=== PATIENT | female | born 1935 | race Caucasian/White ===

== ENCOUNTER 2017-05-16 19:16 | Emergency (ER) | payer MEDICARE ==
--- NOTE | 2017-05-16 20:15 | ER NURSING DOCUMENTATION ---
Nurse's Notes [facility] Name:Kimberly Brown Age:81 yrs Sex:Female :1935 Arrival Date:05/16/2017 Time:19:16 Bed5 Private MD: Diagnosis:Bladder Infection (UTI) Presentation: 05/16 19:53 Presenting complaint: Patient states: pt states shes had painful urination. denies bw2 fevers. Transition of care: patient was not received from another setting of care. 19:53 Method Of Arrival: Walk In 2 19:53 Acuity: KATIANA 3 bw2 Triage Assessment: 19:55 General: Appears in no apparent distress, uncomfortable, Behavior is appropriate for bw2 age. Pain: Complains of pain in lower abdominal pain. Respiratory: No deficits noted. Historical: - Allergies: PENICILLINS; [place] Concentrate; Tomato; - Tetanus: < 10 years. - Ebola Screening: : Patient negative for fever greater than or equal to 101.5 degrees Fahrenheit, and additional compatible Ebola Virus Disease symptoms. Patient denies exposure to infectious person. Patient denies travel to an Ebola-affected area in the 21 days before illness onset. No symptoms or risks identified at this time. . - Immunization history: Flu Vaccine < 1 year. - Social history: Smoking status: Patient states was never smoker of tobacco. Screenin:57 Infectious Disease Risk None. Abuse screen: Denies threats or abuse. Nutritional bw2 screening: No deficits noted. Assessment: 19:57 See Triage Assessment done by same RN. bw2 Vital Signs: 19:55 BP 150 / 75; Pulse 89; Resp 18; Temp 98.5; Pulse Ox 95% ; Weight 58.97 kg; Height 5 ft. bw2 3 in. (160.02 cm); Pain 3/10; 19:55 Body Mass Index 23.03 (58.97 kg, 160.02 cm) bw2 ED Course: 19:18 Patient arrived in ED. ama 19:40 Chito Sommers MD is Attending Physician. melida 19:53 Riri Hinds is Primary Nurse. bw2 19:54 Triage completed. bw2 19:57 Valuables Remains with patient Patient has correct armband on for positive bw2 identification. Administered Medications: 20:08 Drug: Ciprofloxacin 500 mg; Route: PO; bw2 20:13 Follow up: Response: No adverse reaction bw2 Point of Care Testing: Urine Dip: 19:59 pH: 5.0; ; Specific [place]: 1.010; Ketones: 1 mg/dL; Glucose: 1 mg/dL; Protein: 3 bw2 mg/dL; Leukocytes: 3 Leuko/?L; Nitrite: Positive (+) ; Blood: 2 [place]/?L; Bilirubin: 1 mg/dL; Urobilinogen: 4 mg/dL; Outcome: 20:06 Discharge ordered by . melida 20:13 Discharged to home ambulatory. bw2 20:13 Condition: good 20:13 Discharge instructions given to patient, Instructed on discharge instructions, follow up and referral plans. Demonstrated understanding of instructions, medications, Prescriptions given X 1. 20:14 Patient left the ED. bw2 Signatures: Chito Sommers MD MD jm Averdick, Andrew, Reg Reg ama Wisely, Beth bw2
--- NOTE | 2017-05-16 20:15 | ER PHYSICIAN DOCUMENTATION ---
Physician Documentation [facility] ([place], [place]) Name:Kimberly Brown Age:81 yrs Sex:Female :1935 Arrival Date:05/16/2017 Time:19:16 Bed5 Private MD: Chito Rodriguez Disposition: 05/16/17 20:06 Discharged to Home/Self Care. Impression: Bladder Infection (UTI). - Condition is Good. - Discharge Instructions: BLADDER INFECTION, Female (Adult). - Prescriptions for Cipro 500 mg Oral Tablet - take 1 tablet by ORAL route every 12 hours for 7 days; 14 tablet. - Medical Reconciliation form form. - Follow up: Private Physician; When: As needed; Reason: Continuance of care. - Problem is new. - Symptoms have improved. HPI: 05/16 20:00 This 81 yrs old Female presents to ER via Walk In with complaints of Urinary jm Problem. 20:00 The patient presents with urinary symptoms, dysuria, frequency. Onset: The jm symptoms/episode began/occurred today. Associated signs and symptoms: Pertinent positives: flank pain. Severity of symptoms: in the emergency department the symptoms are unchanged. The patient has experienced similar episodes in the past, and the symptoms today are exactly the same, to when the patient was apparently diagnosed with UTI. Historical: - Allergies: PENICILLINS; [place] Concentrate; Tomato; - Tetanus: < 10 years. - Ebola Screening: : Patient negative for fever greater than or equal to 101.5 degrees Fahrenheit, and additional compatible Ebola Virus Disease symptoms. Patient denies exposure to infectious person. Patient denies travel to an Ebola-affected area in the 21 days before illness onset. No symptoms or risks identified at this time. . - Immunization history: Flu Vaccine < 1 year. - Social history: Smoking status: Patient states was never smoker of tobacco. ROS: 20:00 Constitutional: Positive for fever, malaise. jm 20:00 ENT: Negative for rhinorrhea, sinus congestion, sinus pain, sore throat. 20:00 Abdomen/GI: Positive for abdominal pain. 20:00 : Positive for urinary symptoms, pelvic pain. Exam: 23:41 Constitutional: The patient appears alert, awake, non-diaphoretic. jm 23:41 Abdomen/GI: Palpation: abdomen is soft and non-tender, in the suprapubic area. 23:41 : CVA tenderness, is absent, Bladder: tenderness, that is moderate. Vital Signs: 19:55 BP 150 / 75; Pulse 89; Resp 18; Temp 98.5; Pulse Ox 95% ; Weight 58.97 kg; Height 5 ft. bw2 3 in. (160.02 cm); Pain 3/10; 19:55 Body Mass Index 23.03 (58.97 kg, 160.02 cm) bw2 MDM: 19:40 Patient medically screened. 23:43 Differential diagnosis: urinary tract infection. Data reviewed: vital signs, nurses jm notes, EKG, and as a result, I will discharge patient, administer antibiotics. Counseling: I had a detailed discussion with the patient and/or guardian regarding: the historical points, exam findings, and any diagnostic results supporting the discharge/admit diagnosis, lab results. 05/16 20:21 Order name: URINE MICROSCOPIC EDMS Dispensed Medications: 20:08 Drug: Ciprofloxacin 500 mg; Route: PO; bw2 20:13 Follow up: Response: No adverse reaction bw2 Point of Care Testing: Urine Dip: 19:59 pH: 5.0; ; Specific [place]: 1.010; Ketones: 1 mg/dL; Glucose: 1 mg/dL; Protein: 3 bw2 mg/dL; Leukocytes: 3 Leuko/?L; Nitrite: Positive (+) ; Blood: 2 Morales/?L; Bilirubin: 1 mg/dL; Urobilinogen: 4 mg/dL; Signatures: Chito Sommers MD MD jm Wisely, Beth bw2
[2017-05-16 20:18] LABS: URINE BACTERIA NONE SEEN (<10/hpf); URINE MUCUS UP TO 25%/lpf (Up to 25%); URINE SQUAMOUS EPITHELIAL CELL 0-5/hpf (<= 15/hpf); URINE WBC 0-4/hpf (0-4/hpf)
[2017-05-16] MEDS ORDERED: CIPROFLOXACIN HCL 500 MG TABLET PO ONE (20:22)
== END 2017-05-16 20:15 | disposition home or self-care (01) ==
LOC: ER 19:16
DX: N39.0 Urinary tract infection, site not specified (principal)
CPT/HCPCS: 81015; 99283